=== PATIENT | male | born 1995 | race African-American/Black ===

== ENCOUNTER 2020-11-22 19:44 | Emergency (ER) | payer OTHER ==
[~2020-11-22] VITALS: Ht 172.7 cm; Wt 65.8 kg
[~2020-11-22 19:44] MED LIST: BACTRIM DS TAB1 EAC1 ORAL; HYDROCODON-ACE1 EA15 ORAL; KEFLEX500 MG ORAL
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
[2020-11-22 20:33] VITALS: BP 120/85
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
[2020-11-22 20:59] LABS: APPEARANCE,URINE CLEAR; BILIRUBIN, URINE NEGATIVE (NEGATIVE); GLUCOSE, URINE (UA) NEGATIVE (NEGATIVE); KETONES,URINE 1+ (NEGATIVE); NITRITE,URINE NEGATIVE (NEGATIVE); PH,URINE 6.5 (4.5-8.0); PROTEIN,URINE NEGATIVE (NEGATIVE); UROBILINOGEN,URINE 1 MG/DL (0.0-1.0)
[2020-11-22 21:07] LABS: COLOR,URINE YELLOW
[2020-11-22 21:08] LABS: LEUKOCYTE ESTERASE ,URINE NEGATIVE (NEGATIVE)
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
[2020-11-22] MEDS ORDERED: IBUPROFEN600 M1 ORAL (23:19)
== END 2020-11-22 23:26 | disposition home or self-care (01) ==
LOC: EMR 20:39
DX: S30.1XXA Contusion of abdominal wall, initial encounter (principal); V43.62XA Car passenger injured in collision with other type car in traffic accident, initial encounter; Y92.410 Unspecified street and highway as the place of occurrence of the external cause; Z91.018 Allergy to other foods; M25.559 Pain in unspecified hip
CPT/HCPCS: 72131; 74176; 81001; Z7502; 99284